=== PATIENT | male | born 2000 | race Caucasian/White ===

== ENCOUNTER 2024-12-19 17:13 | Emergency (ER) | payer OTHER, SELFPAY ==
[2024-12-19 17:18] VITALS: BP 134/87; PULSE 84; TEMP 36.9; O2SAT 98; BMI 25.7
--- NOTE | 2024-12-19 18:44 | ED_ITS ---
HPI - Animal Bite General: Chief Complaint: Animal Bite Stated Complaint: dog bite, R arm Time Seen by Provider: 12/19/24 18:30 History of Present Illness: Patient comes in today for injuries to the right arm. Patient had recently got a half breed dog with a Carmona the dog became aggressive when it was shocked due to a downed power line. When the patient tried to comfort the dog it bit him. No immunizations has been given to the dog at this time. Dog appeared well. Patient states that they have put the dog down. Related Data Previous Rx's ?Medication ?Instructions ?Recorded sulfamethoxazole 800 1 tab PO BID 7 days #14 tabs 07/14/24 mg-trimethoprim 160 mg tablet (Bactrim DS) amoxicillin 875 mg-potassium 1 tab PO BID #20 tabs clavulanate 125 mg tablet Allergies Allergy/AdvReac Type Severity Reaction Status Date / Time oxycodone Allergy ADR-Itching Verified 12/19/24 17:25 Review of Systems General: Reports: 10 or more systems reviewed and unremarkable except in HPI and below PFSH ED PFSH: Social History Smoking and tobacco/nicotine status: unknown if used tobacco/nicotine Physical Exam Const: COMMON NORMALS: alert HENMT: COMMON NORMALS: normocephalic HEAD & SCALP: normocephalic Neck/C-Spine: COMMON NORMALS: full ROM Resp: COMMON NORMALS: normal respiratory effort Cardio: COMMON NORMALS: regular rate RATE: regular rate GI: COMMON NORMALS: non-tender Back/Pelvis: COMMON NORMALS: thoracic and lumbar spine normal to inspection Extremity: RIGHT UPPER EXTREMITY: Yes hand & digits (3 superficial lacerations right forearm) Neuro: SENSORIUM/ORIENTATION: Yes alert Skin: COMMON NORMALS: turgor normal GENERAL SKIN EXAM: turgor normal TRAUMA: laceration (Right forearm 3 superficial lacerations) Course Vital Signs: Vital signs: Vital Signs Temperature 98.5 F 12/19/24 17:18 Pulse Rate 84 12/19/24 17:18 Blood Pressure 134/87 12/19/24 17:18 Pulse Oximetry 98 12/19/24 17:18 Oxygen Delivery Me thod Room Air 12/19/24 17:18 MDM - Animal Bite Medical Decision Making 24-year-old male patient comes in today for injury secondary to his own dog biting him. Patient states that the dog came aggressive when it was electrocuted by a downed power line. When patient tried to comfort the dog it became aggressive and bit him on the forearm. The patient has put the dog down due to it being a half breed with a Carmona. Patient appears nontoxic. Patient was extremities well. Differential diagnosis includes need for prophylaxis tetanus, need for rabies post exposure prophylaxis treatment, need for prophylaxis antibiotic, laceration. Wounds are clean and dry and approximated with Steri-Strips. Patient will be placed on amoxicillin with potassium clavulanate 875 twice daily for 10 days. Reviewed pros and cons for rabies series postexposure treatment. Patient wanted to proceed with vaccine series. No radiology studies performed this visit Discharge Plan Discharge Patient Disposition: Home Clinical Impression: Bite by animal Laceration of forearm Qualifiers: Encounter type: initial encounter Laterality: right Qualified Code(s): S51.811A - Laceration without foreign body of right forearm, initial encounter Condition: Stable Prescriptions: New amoxicillin-pot clavulanate 875-125 mg tablet 1 tab PO BID Qty: 20 0RF No Action sulfamethoxazole-trimethoprim [Bactrim DS] 800-160 mg tablet 1 tab PO BID 7 Days Qty: 14 0RF Discharge Orders: Discharge ED (Routine); Ordered 12/19/24 Ordered By: Alexei Schultz Discharge Diet: Usual diet Discharge Activity: Increase activity as tolerated Patient Instructions: Animal Bite (ED) Activity Restrictions/Additional Instructions: Keep wound clean and dry. Is important keep the wound as dry as possible for the next 48 hours. Cover wounds to protect from dirt and soiling. If wounds become wet thoroughly dry and cover to protect. Take antibiotics as directed. Follow-up with primary care for further instructions. You will need to return on day 3, day 7, and day 14 to complete the vaccine series. Print Language: Jamaican Coding Level of Care Code ED Automatic Vulcanizing Lead Operator for Jose Can
[2024-12-19] MEDS: amoxicillin-clav 875-125 mg Tablet 1 TAB PO (20:13)
[2024-12-19] MEDS: rabies vaccine 2.5 unit SDV IM (20:13)
[2024-12-19] MEDS: rabies IG 300 unit/mL SDV 1 mL 1770 UNIT IM (20:13)
[2024-12-19 20:36] VITALS: BP 128/83; PULSE 79; RESP 14; O2SAT 99
== END 2024-12-19 20:35 | disposition home or self-care (01) ==
PROVIDERS: Emergency Provider Nurse Practitioner Family
DX: S51.811A Laceration without foreign body of right forearm, initial encounter (principal); W54.0XXA Bitten by dog, initial encounter; Z29.14 Encounter for prophylactic rabies immune globulin; Z23 Encounter for immunization
CPT/HCPCS: 90375; 90471; 90675; 96372; 99283; 99291; J9999